=== PATIENT | female | born 1935 | race Caucasian/White ===

== ENCOUNTER → 2020-04-22 | Outpatient (CLI) | payer MEDICARE ==
[~2020-04-22] MED LIST: ACET-841 PO; CALC1CAP34 PO; COUM1TAB17 OR; DILT180C7 PO; DILT180C78 PO; DIPH25CA32 PO; LIPI10TA PO; LOPR1TAB6 PO; MAGN200T PO; PERCOCET PO; POTA1TAB14 PO; SILD25TA2 PO; SIMV20TA22 PO; TORS20TA2 PO; TYLE325T5 PO; VITA-243 PO; VITA100037 PO; VITA500C24 PO; WARF-18 PO; ZOCO20TA PO; calcium with vit D OR; diltiazem OR; lopressor OR; magnesium OR; potassium OR
== END ==
LOC: M LABSMTC 13:58
PROVIDERS: ATTEND Anesthesiology
DX: Z01.812 Encounter for preprocedural laboratory examination (principal); Z11.52 Encounter for screening for COVID-19

== ENCOUNTER 2020-04-27 14:00 | Day surgery (SDC) | payer MEDICARE ==
[~2020-04-27] VITALS: Ht 165.1 cm; Wt 89.8 kg
[~2020-04-27 14:00] MED LIST changes: +LR 1,000 ML IV ONE; +VANCOMYCIN HCL 1,000 MG, VIAL MATE ADAPTER 1 EACH in D5W 250 ML IV ONE
[2020-04-27] MEDS ORDERED: ONDANSETRON 4MG/2ML VIAL As Ordered ONE (14:29)
[2020-04-27] MEDS ORDERED: propofoL 200 MG/20 ML VIAL As Ordered ONE (14:29)
[2020-04-27] MEDS ORDERED: LIDOCAINE 2% 100MG/5ML SDV (FOR ANES.) As Ordered ONE (14:29)
[2020-04-27] MEDS ORDERED: fentaNYL 100 MCG/2 ML INJECTION (J3010) As Ordered ONE (14:29)
[2020-04-27 15:08] LABS: INR 2.1
[2020-04-27] MEDS ORDERED: LIDOCAINE 1% SDV 30ML VIAL As Ordered ONE (15:39)
[2020-04-27] MEDS ORDERED: NEOSPORIN TOP OINT 15GM As Ordered ONE (15:40)
[2020-04-27 18:10] VITALS: BP 133/61
--- NOTE | 2020-04-28 09:04 | RO ---
OPERATIVE NOTE DATE OF OPERATION: 04/27/2020 PREOPERATIVE DIAGNOSIS: Pacemaker pulse generator battery depletion. POSTOPERATIVE DIAGNOSES: 1. Pacemaker pulse generator battery depletion. 2. Outer insulation break involving the ventricular lead. FINDINGS: 1. Pacemaker pulse generator battery depletion. 2. Outer insulation break of the ventricular pacemaker lead. PROCEDURE(S) PERFORMED: 1. Explantation of old dual-chamber pacemaker 2. Implantation of a new dual-chamber pacemaker pulse generator. 3. Application of silicone glue over the insulation break in the ventricular lead. 4. Implantation of a Medtronic TYRX antimicrobial envelope. SURGEON: Liam Sanchez M.D. AREA SECRETARY: None. ANESTHESIA: Lidocaine 1% local/monitored anesthetic care. SPECIMENS: Old [employer] medical dual-chamber pacemaker pulse generator. ESTIMATED BLOOD LOSS: Less than 5 mL. BLOOD PRODUCTS: None. DRAINS: None. COMPLICATIONS: None. DESCRIPTION OF PROCEDURE: The patient was prepped and draped over the left pectoral region. A 3M Ioban film was applied. An incision was made using a PEAK PlasmaBlade over the upper portion of the pacemaker pulse generator, roughly parallel to but below the existing pacemaker scar. The dissection was carried out with a PEAK PlasmaBlade and using small amounts of fine scissor dissection down to the level of the pacemaker pulse generator to get down to and through the anterior capsule. The ventricular pacemaker leads in the pocket were freed up using the PEAK PlasmaBlade. I noticed where the thick reinforcing part of the ventricle pacemaker lead terminates and goes to the normal diameter of the remainder of the pacemaker leader, that there was a partial circumferential break of the outer insulation with exposure of the outer coil. I applied surgical silicone glue over the break and allowed several minutes for it to partially cure. A 0-Ethibond suture was placed to the floor of the pocket to serve as the tie down. The next step was placing a Medtronic TYRX antimicrobial envelope, which was cut into four pieces and placed into the pocket of the existing pacemaker pocket. The excess lead was then coiled and placed underneath the pacemaker pulse generator and placed along with the pacemaker pulse generator into the pocket. The pacemaker pulse generator was then secured to the pectoral muscle with the previously placed 0-Ethibond suture. The deep layer was closed using individual sutures consisting of 2-0 Vicryl. A few additional 3-0 Vicryl sutures were used to help approximate the more superficial layer. Darren were used to close the skin. This was followed by dressing consisting of application of Bactroban ointment followed by Telfa followed by a bio-occlusive dressing. The patient tolerated the procedure well without any immediate complications. The pacemaker pulse generator that was removed was a [employer] Accent, Model 2110 with Serial #[id number]; originally implanted 09/30/2010. The new pacemaker pulse generator implanted was a [employer]urity MRI with Model KT2719 with Serial #[id number]. The existing right atrial lead was a [employer] Model 1788TC with Serial #[id number]. Testing of the right atrial lead in bipolar configuration showed a capture threshold of 1.7 volts at 0.4 msec with P-wave amplitude of 0.4 mV and lead impedance of 367 ohms. Testing in the operating room of the right ventricle lead showed a capture threshold of 0.75 volts at 0.4 msec with R-wave of 12 mV and lead impedance of 540 ohms.
== END 2020-04-27 18:13 | disposition home or self-care (01) ==
LOC: M SDC 14:00
PROVIDERS: ATTEND Internal Medicine Cardiovascular Disease
DX: Z45.010 Encounter for checking and testing of cardiac pacemaker pulse generator [battery] (principal); T82.110A Breakdown (mechanical) of cardiac electrode, initial encounter; I48.0 Paroxysmal atrial fibrillation; E78.49 Other hyperlipidemia; Z79.01 Long term (current) use of anticoagulants; G47.30 Sleep apnea, unspecified; Z79.52 Long term (current) use of systemic steroids; Z79.899 Other long term (current) drug therapy; I34.9 Nonrheumatic mitral valve disorder, unspecified; Z88.0 Allergy status to penicillin
CPT/HCPCS: 33228; 36415; 85610; C1785; J2405; J3010; J3370

== ENCOUNTER → 2021-09-10 | Outpatient (CLI) | payer MEDICARE ==
[~2021-09-10] MED LIST changes: +ISOVUE-300 61% 50ML VIAL As Ordered ONE; +LIDOCAINE 1% MDV 20ML VIAL As Ordered ONE; -LR 1,000 ML IV ONE; +TRIAMCINOLONE ACETONIDE SUSP 40 MG/ML VIAL (J3301) As Ordered ONE; -VANCOMYCIN HCL 1,000 MG, VIAL MATE ADAPTER 1 EACH in D5W 250 ML IV ONE
== END ==
LOC: M RADPRO 14:56
PROVIDERS: ATTEND Orthopaedic Surgery
DX: M19.071 Primary osteoarthritis, right ankle and foot (principal)
CPT/HCPCS: 20600; 77002; J3301; Q9967

== ENCOUNTER → 2022-10-05 | Outpatient (REF) | payer MEDICARE ==
[~2022-10-05] MED LIST changes: +DIPH-435 PO; -DIPH25CA32 PO; -ISOVUE-300 61% 50ML VIAL As Ordered ONE; -LIDOCAINE 1% MDV 20ML VIAL As Ordered ONE; +POTA-298 PO; -POTA1TAB14 PO; +SIMV-253 PO; -TRIAMCINOLONE ACETONIDE SUSP 40 MG/ML VIAL (J3301) As Ordered ONE; -ZOCO20TA PO
[2022-10-05 15:02] LABS: HEMATOCRIT 27.1 % (36.0-47.0); HEMOGLOBIN 8.5 g/dl (12.0-15.5); MEAN CORPUSCULAR HEMOGLOBIN 28.1 pg (27.0-33.0); MEAN CORPUSCULAR HGB CONC 31.4 g/dl (32.0-36.5); MEAN CORPUSCULAR VOLUME 89.7 fl (80.0-96.0); PLATELET COUNT, AUTOMATED 117 10^3/uL (150-450); RED BLOOD COUNT 3.02 10^6/uL (4.00-5.40); WHITE BLOOD COUNT 3.8 10^3/uL (4.0-10.0)
[2022-10-05 15:08] LABS: ALBUMIN 2.8 G/DL (3.2-5.2); ALKALINE PHOSPHATASE 119 U/L (46-116); ALT/SGPT 16 U/L (7.0-40); AST/SGOT < 8 U/L (<34); BILIRUBIN,TOTAL 1.5 MG/DL (0.3-1.2); BLOOD UREA NITROGEN 54 MG/DL (9-23); CALCIUM LEVEL 8.8 MG/DL (8.3-10.6); CARBON DIOXIDE LEVEL 23 MMOL/L (20-31); CHLORIDE LEVEL 110 MMOL/L (98-107); CREATININE FOR GFR 1.41 MG/DL (0.55-1.30); GLOMERULAR FILTRATION RATE 37.6 (>32); GLUCOSE, FASTING 106 MG/DL (74-106); IRON (FE) 27 UG/DL (50-170); POTASSIUM SERUM 4.4 MMOL/L (3.5-5.1); SODIUM LEVEL 140 MMOL/L (136-145); TOTAL PROTEIN 6.5 G/DL (5.7-8.2)
[2022-10-05 15:10] LABS: THYROID STIMULATING HORMONE 3.421 uIU/ML (0.55-4.78)
[2022-10-05 15:11] LABS: FREE T4 1.98 NG/DL (0.89-1.76)
== END ==
LOC: M LAB REF 14:20
PROVIDERS: ATTEND Internal Medicine Cardiovascular Disease
DX: Z79.899 Other long term (current) drug therapy (principal)